=== PATIENT | female | born 1950 | race Caucasian/White ===

== ENCOUNTER → 2017-02-13 | Outpatient (CLI) | payer BC ==
[~2017-02-13] MED LIST: ASCO10007 PO; ASPI-725 PO; CALC-946 PO; CYCL30DR BOTH EYES; FURO-33 PO; HYDR200T4 PO; LACT20PA4 PO; LEVO125T4 PO; OXYC5TAB84 PO; PANT40TA25 PO; PROP120C2 PO; RIFA200T4 PO; SPIR100T24 PO; SUCR1TAB PO; [UNRECOGNIZED DRUG - CODE] PO
--- NOTE | 2017-02-13 09:27 | DI ---
INDICATION: ITS.REASON: [id number] PLEURAL EFFUSION PROCEDURE: CHEST 2-VIEWS UPRIGHT (PA \T\ LAT) Encounter: Initial COMPARISON: Two-view chest, 01/07/2016 FINDINGS: There is some left basal atelectasis associated with the left pleural effusion which appears relatively similar to that noted on the reference study. The remainder of the lungs are grossly clear and the right pleural space appears normal. The heart size, mediastinal contours and pulmonary vascularity are within normal limits. There is no significant skeletal abnormality. IMPRESSION: Left pleural effusion with associated atelectasis, relatively similar to that noted on the reference study from December. .
--- NOTE | 2017-02-13 09:45 | DI ---
Indication: ITS.REASON: K74.3 66-year-old female; history of primary biliary cirrhosis; rule out splenic hematoma PROCEDURE: US ABDOMEN LIMITED: Encounter: Initial Comparison: None Technique: Grayscale and color Doppler sonographic imaging of the left upper quadrant of the abdomen was performed. Findings: The spleen is enlarged measuring 16.6 cm but is of homogeneous echotexture without evidence of laceration or perisplenic fluid or mass. The splenic hilar vasculature appears normal. Impression: 1. Splenomegaly without evidence of adjacent hematoma, perisplenic fluid, or definitive evidence of laceration. .
== END ==
LOC: IMA 06:30
PROVIDERS: ATTEND Internal Medicine Gastroenterology
DX: K74.3 Primary biliary cirrhosis (principal); R16.1 Splenomegaly, not elsewhere classified; J90 Pleural effusion, not elsewhere classified

== ENCOUNTER → 2017-03-20 | Outpatient (CLI) | payer BC | LOC: WC.BC 10:26 | DX: Z12.31 Encounter for screening mammogram for malignant neoplasm of breast (principal) | CPT/HCPCS: 77063; G0202 ==

== ENCOUNTER → 2017-04-13 | Outpatient (CLI) | payer BC ==
--- NOTE | 2017-04-13 11:07 | DI ---
INDICATION: ITS.REASON: M25.512 Pain in left shoulder, M54.9 PROCEDURE: CHEST 2-VIEWS UPRIGHT (PA \T\ LAT) Encounter: Initial COMPARISON: February 13, 2017 FINDINGS: Small left pleural effusion with basilar compressive atelectasis. Right lung is clear. No pneumothorax. Heart size and mediastinal contours are stable. Pulmonary vascularity is normal. Impression: Stable small left pleural effusion. .
--- NOTE | 2017-04-13 11:08 | DI ---
Indication: ITS.REASON: M25.512,M54.9 PROCEDURE: CHEST DECUBITUS 1-2 VIEWS: Encounter: Initial Comparison: Chest x-ray from today Findings/ Impression: Left decubitus view shows that the small left pleural effusion is freely layering with an average depth of 2 cm. No additional new findings. .
== END ==
LOC: IMA 10:06
PROVIDERS: ATTEND Internal Medicine
DX: J90 Pleural effusion, not elsewhere classified (principal); M25.512 Pain in left shoulder; M54.9 Dorsalgia, unspecified